=== PATIENT | male | born 1955 | race African-American/Black ===

== ENCOUNTER → 2020-08-07 | Outpatient (CLI) | payer MEDICARE ==
[2014-04-03 14:52] VITALS: BP 120/79
[~2020-08-07] MED LIST: LISI1TAB23 PO
--- NOTE | 2020-08-07 12:57 | KCIC ---
Exam Date: 08/07/2020 9:25 AM MRI LEFT LOWER EXTREMITY JOINT WITHOUT Indication: Reason: LEFT KNEE PAIN / Spl. Instructions: / History: Acute medial and lateral knee brandee n 2 weeks ago. NKI. Swelling.. TECHNIQUE: Routine multiplanar MR imaging of the knee was performed without contrast. FINDINGS: There is a complex tear of the posterior horn of the medial meniscus with a large radial component The lateral meniscus is intact and within normal limits for age. The anterior cruciate ligament, posterior cruciate ligament, medial collateral ligament, and lateral collateral ligament complex are intact. Patellofemoral extensor mechanism and popliteus tendon are w ithin normal limits. There is extensive full-thickness chondral loss in the patellofemoral compartment with moderate subch ondral degenerative marrow signal. There is mild diffuse chondral thinning in the medial compartment with multifocal full-thickness chondral defects and mild subchondral degenerative marrow signal. Mult ifocal partial thickness chondral defects are seen in the lateral compartment without large full-thic kness chondral loss. Small tricompartment osteophytes are present. Bone marrow demonstrates benign signal on all sequences . No acute fracture is seen. There is a moderate joint effusion. There is a small popliteal cyst. IMPRESSION: Complex tear of the posterior horn of the medial meniscus. Full-thickness chondral loss is seen in the patellofemoral compartment more so than the medial compar tment. Moderate joint effusion and small popliteal cyst noted. Electronically signed by: Mitesh Huizar MD (08/07/2020 12:54 PM) [id number]
== END ==
LOC: KCIC MRI 08:33
PROVIDERS: ATTEND Nurse Practitioner Family
DX: S83.242A Other tear of medial meniscus, current injury, left knee, initial encounter (principal); M71.22 Synovial cyst of popliteal space [Baker], left knee; M25.462 Effusion, left knee; M25.762 Osteophyte, left knee; X58.XXXA Exposure to other specified factors, initial encounter; Y93.89 Activity, other specified; Y92.89 Other specified places as the place of occurrence of the external cause; Y99.8 Other external cause status
CPT/HCPCS: 73721